=== PATIENT | female | born 1995 | race Caucasian/White ===

== ENCOUNTER 2017-11-30 19:25 | Emergency (ER) | payer MEDICAID ==
[~2017-11-30] VITALS: Ht 172.7 cm; Wt 62.1 kg
[~2017-11-30 19:25] MED LIST: ONDA8TAB6 PO; PHEN-873 PO
[2017-11-30 21:35] LABS: BASOPHILS # (AUTO) 0.1 X10'3 (0-0.2); BASOPHILS % (AUTO) 0.6 % (0-1); EOSINOPHILS # (AUTO) 0.3 X10'3 (0-0.9); EOSINOPHILS % (AUTO) 3.1 % (0-6); HEMATOCRIT 37.5 % (35.0-45.0); HEMOGLOBIN 12.5 g/dl (12.0-16.0); LYMPHOCYTES % (AUTO) 35.1 % (21-51); MEAN CORPUSCULAR HEMOGLOBIN 27.4 PG (27.0-31.0); MEAN CORPUSCULAR HGB CONC 33.4 % (33.0-36.5); MEAN CORPUSCULAR VOLUME 82.1 FL (78-98); MEAN PLATELET VOLUME 7.7 FL (7.4-10.4); MONOCYTES # (AUTO) 0.5 X10'3 (0-0.9); MONOCYTES % (AUTO) 6.2 % (2-12); NEUTROPHILS # (AUTO) 4.6 X10'3 (1.8-7.7); PLATELET COUNT 513 X10'3 (140-440); RED BLOOD COUNT 4.57 X10'6 (4.20-5.60); RED CELL DISTRIBUTION WIDTH 16.7 % (11.5-14.5); WHITE BLOOD COUNT 8.4 X10'3 (4.5-11.0)
[2017-11-30 21:37] LABS: URINE HCG NEGATIVE (NEG)
[2017-11-30 21:51] LABS: ALANINE AMINOTRANSFERASE 33 U/L (12-78); ALBUMIN 3.8 G/DL (3.4-5.0); ALBUMIN/GLOBULIN RATIO 0.9 (1.1-1.5); ALKALINE PHOSPHATASE 109 IU/L (46-116); ANION GAP 10 (8-16); ASPARTATE AMINO TRANSFERASE 14 U/L (10-37); BILIRUBIN,TOTAL 0.3 MG/DL (0.1-1.0); BLOOD UREA NITROGEN 24 MG/DL (7-18); BUN/CREATININE RATIO 27.9 (6.6-38.0); CALCIUM 9.4 MG/DL (8.5-10.1); CHLORIDE 104 MMOL/L (99-107); CREATININE 0.86 MG/DL (0.40-0.90); GLUCOSE 94 MG/DL (70-104); POTASSIUM 4.1 MMOL/L (3.5-5.1); SODIUM 142 MMOL/L (135-145); TOTAL CARBON DIOXIDE 28.4 MMOL/L (24-32); TOTAL PROTEIN 8.2 G/DL (6.4-8.2); eGFR 83 ML/MIN
[2017-11-30 21:52] LABS: CLARITY,URINE SLIGHTLY CLOUDY (Clear); COLOR,URINE YELLOW (Yellow); GLUCOSE, URINE NEGATIVE (Neg); KETONES,URINE NEGATIVE (Neg); LEUKOCYTE ESTERASE ,URINE NEGATIVE (Neg); NITRITES, URINE NEGATIVE (Neg); OCCULT BLOOD,URINE LARGE (Neg); PROTEIN,URINE NEGATIVE (Neg); UROBILINOGEN,URINE 0.2 E.U/dL (0.2-1.0)
[2017-11-30 21:57] LABS: BACTERIA,URINE FEW /HPF (Neg); MUCUS STRANDS MANY /LPF (Neg); SQUAMOUS EPITHELIAL CELL,UR FEW /LPF (FEW); UA COLLECTION TYPE CLN CATCH MIDSTREAM
[2017-11-30 21:58] LABS: WBC CLUMPS,URINE FEW /HPF (NEGATIVE)
[2017-11-30 23:04] VITALS: BP 130/82
== END 2017-11-30 23:06 | disposition home or self-care (01) ==
LOC: ER 19:26
DX: L76.82 Other postprocedural complications of skin and subcutaneous tissue (principal); R10.9 Unspecified abdominal pain; R05 Cough; F12.10 Cannabis abuse, uncomplicated; Z88.0 Allergy status to penicillin; Z98.890 Other specified postprocedural states
CPT/HCPCS: 36415; 80053; 81001; 81025; 85025; 87088; 99284

== ENCOUNTER 2018-04-17 13:37 | Outpatient (CLI) | payer MEDICAID ==
[~2018-04-17 13:37] MED LIST changes: +PHEN-786 PO; -PHEN-873 PO
== END 2018-04-17 23:59 | disposition home or self-care (01) ==
LOC: RAD 13:37
PROVIDERS: ATTEND Family Medicine
DX: Z34.91 Encounter for supervision of normal pregnancy, unspecified, first trimester (principal); Z3A.08 8 weeks gestation of pregnancy; Z88.0 Allergy status to penicillin; F17.200 Nicotine dependence, unspecified, uncomplicated
CPT/HCPCS: 76805; 76830

== ENCOUNTER 2021-04-30 05:35 | Day surgery (SDC) | payer MEDICAID ==
[2021-04-22 15:25] LABS: BASOPHILS % (AUTO) 0.4 % (0-1); EOSINOPHILS # (AUTO) 0.3 X10'3 (0-0.9); EOSINOPHILS % (AUTO) 5.4 % (0-6); LYMPHOCYTES # (AUTO) 1.2 X10'3 (1.1-4.8); LYMPHOCYTES % (AUTO) 19.7 % (21-51); MEAN CORPUSCULAR HEMOGLOBIN 31.1 PG (27.0-31.0); MEAN CORPUSCULAR HGB CONC 33.1 g/dL (33.0-36.5); MEAN PLATELET VOLUME 8.4 FL (7.4-10.4); MONOCYTES # (AUTO) 0.8 X10'3 (0-0.9); MONOCYTES % (AUTO) 13.5 % (2-12); NEUTROPHILS # (AUTO) 3.7 X10'3 (1.8-7.7); PRE OP HEMATOCRIT 40.8 % (35.0-45.0); PRE OP HEMOGLOBIN 13.5 g/dL (12.0-16.0); PRE OP PLATELET COUNT 189 X10'3 (140-440); RED BLOOD COUNT 4.33 X10'6 (4.20-5.60); RED CELL DISTRIBUTION WIDTH 13.5 % (11.5-14.5)
[2021-04-22 15:40] LABS: HCG SERUM QL NEGATIVE
[2021-04-30] VITALS (11 sets, daily range): BP systolic 114–148; BP diastolic 79–92
[~2021-04-30] VITALS: Ht 172.7 cm; Wt 76.1 kg
[~2021-04-30 05:35] MED LIST changes: +NAPR220T67 PO; -ONDA8TAB6 PO; -PHEN-786 PO; +cefazolin/dext.iso 2gm/100ml IV ONE; +famotidine 20mg tablet PO ONE; +ringers solution, lacted 1,000 ML IV SCH
[2021-04-30] MEDS ORDERED: BUPIVAcaine/PF 2.5mg/ml (0.25%) 10ml vial ONE (06:55)
[2021-04-30] MEDS ORDERED: sevoflurane 250ml liquid IH ONE (07:51)
[2021-04-30] MEDS ORDERED: fentaNYL/PF 50MCG/1 ML 2ML syringe ONE (07:52)
[2021-04-30] MEDS ORDERED: propofol inj 20 ML IV ONE (07:53)
[2021-04-30] MEDS ORDERED: rocuronium 10mg/ml inj IV ONE (07:53)
[2021-04-30] MEDS ORDERED: midazolam 1 mg/ML 2ml injection ONE (07:53)
[2021-04-30] MEDS ORDERED: morphine 2 MG/ML inj. syringe IV PRN (08:20)
[2021-04-30] MEDS ORDERED: ondansetron/PF 4mg/2ml inj IV PRN (08:20)
[2021-04-30] MEDS ORDERED: ringers solution, lacted 1,000 ML IV SCH (08:20)
[2021-04-30] MEDS ORDERED: meperidine/PF 25mg/ml syringe IV PRN ×3 (08:20)
[2021-04-30] MEDS ORDERED: morphine 4 MG/ML inj SYRINge IV PRN (08:20)
[2021-04-30] MEDS ORDERED: proCHLORperazine 10 MG/2 ml inj IV PRN (08:20)
[2021-04-30] MEDS ORDERED: BUPIVAcaine 0.5% W/EPI /PF 10ml vial ONE (08:24)
[2021-04-30] MEDS ORDERED: ondansetron/PF 4mg/2ml inj ONE (08:37)
[2021-04-30] MEDS ORDERED: dexamethasone sod phosphate 4mg/ml inj. ONE (08:37)
[2021-04-30] MEDS ORDERED: neostigmine methylsulfate 1 MG/ML 10ml vial ONE (08:52)
[2021-04-30] MEDS ORDERED: glycopyrrolate 0.2mg/ml inj ONE (08:52)
--- NOTE | 2021-04-30 09:05 | NUR ---
ADMITTED TO PACU FROM OR ACCOMPANIED BY ANESTHESIA. INTIAL PHYSICAL ASSESSMENT DONE AND RECORDED. REPORT RECEIVED FROM ANESTHESIA.
--- NOTE | 2021-04-30 10:30 | NUR ---
DISCHARGE CRITERIA MET, DISCHARGE INSTRUCTIONS GIVEN, DEMONSTRATES VERBAL UNDERSTANDING. DISCHARGED HOME IN GOOD CONDITION.
== END 2021-04-30 10:30 | disposition home or self-care (01) ==
LOC: PAS 05:35
PROVIDERS: ATTEND Obstetrics & Gynecology
DX: Z30.2 Encounter for sterilization (principal); J45.909 Unspecified asthma, uncomplicated; F12.90 Cannabis use, unspecified, uncomplicated; Z88.0 Allergy status to penicillin; Z79.899 Other long term (current) drug therapy; Z87.891 Personal history of nicotine dependence; Z98.890 Other specified postprocedural states; Z20.822 Contact with and (suspected) exposure to COVID-19
CPT/HCPCS: 36415; 58670; 82948; 84703; 85025; J1100; J2250; J2405; J2704; J2710; J3010; J3490; J7120; U0003; U0005; Z7506; Z7508; Z7512; A4618; A7000

== ENCOUNTER 2024-10-08 23:23 | Emergency (ER) | payer MEDICAID ==
[~2024-10-08] VITALS: Ht 175.3 cm; Wt 70.3 kg
[~2024-10-08 23:23] MED LIST changes: -cefazolin/dext.iso 2gm/100ml IV ONE; -famotidine 20mg tablet PO ONE; -ringers solution, lacted 1,000 ML IV SCH
[2024-10-09] MEDS: acetaminophen 325mg tablet PO ONE (00:11)
[2024-10-09] MEDS ORDERED: HYDR-3965 PO (00:24)
[2024-10-09] MEDS ORDERED: CYCL-1 PO (00:24)
[2024-10-09 00:28] VITALS: BP 125/74; PULSE 86; RESP 16; TEMP 98.2; O2SAT 100
== END 2024-10-09 00:33 | disposition home or self-care (01) ==
LOC: ER 23:24
DX: M54.2 Cervicalgia (principal); F12.90 Cannabis use, unspecified, uncomplicated; Z88.0 Allergy status to penicillin; Z79.899 Other long term (current) drug therapy; Z98.890 Other specified postprocedural states; Z72.89 Other problems related to lifestyle; V89.2XXA Person injured in unspecified motor-vehicle accident, traffic, initial encounter; Y93.89 Activity, other specified; Y92.89 Other specified places as the place of occurrence of the external cause; Y99.8 Other external cause status
CPT/HCPCS: 72050; 99284